=== PATIENT | female | born 1985 | race Caucasian/White ===

== ENCOUNTER 2023-05-09 19:27 | Emergency (ER) | payer OTHER ==
[2023-05-09] MEDS ORDERED: CETIRIZINE HCL 5 MG TABLET ONE (20:02)
[2023-05-09] MEDS ORDERED: ACETAMINOPHEN 500 MG TAB ONE (20:03)
--- NOTE | 2023-05-09 20:04 | ER ---
Nurse's Notes [facility] Name: Yamilka Gottlieb Age: 37 yrs Sex: Female : 1985 Arrival Date: 05/09/2023 Time: 19:27 Bed Treatment Private MD: Diagnosis: Anxiety disorder, unspecified;Nasal congestion;Headache Presentation: 05/09 19:29 Chief complaint: EMS states: called out for "panic attack" pt reports headache also. pt as6 calm at time of triage. denies thoughts of harming self or others. Coronavirus screen: At this time, the client does not indicate any symptoms associated with coronavirus-19. Ebola Screen: No symptoms or risks identified at this time. Initial Sepsis Screen: Does the patient meet any 2 criteria? No. Patient's initial sepsis screen is negative. Does the patient have a suspected source of infection? No. Patient's initial sepsis screen is negative. Risk Assessment: Do you want to hurt yourself or someone else? Patient reports no desire to harm self or others. Onset of symptoms was May 09, 2023. 19:29 Acuity: REHANA 4 as6 19:29 Method Of Arrival: EMS: [facility] as6 Historical: - Allergies: 19:31 PENICILLINS; as6 - PMHx: 19:31 Anxiety; Depressive disorder; as6 - PSHx: 19:31 None; as6 - Immunization history:: Adult Immunizations up to date. - Social history:: Smoking status: Patient reports the use of cigarette tobacco products, smokes one pack cigarettes per day. Screenin:35 [facility] ED Fall Risk Assessment (Adult) Score/Fall Risk Level 0 - 2 = Low Risk. Abuse eh3 screen: Denies threats or abuse. Denies injuries from another. Nutritional screening: No deficits noted. Tuberculosis screening: No symptoms or risk factors identified. Assessment: 19:35 General: Appears in no apparent distress. uncomfortable, Behavior is cooperative. Pain: eh3 Complains of pain in head. Neuro: Level of Consciousness is awake, alert, obeys commands, Oriented to person, place, time, situation. Cardiovascular: Capillary refill < 3 seconds Patient's skin is warm and dry. Respiratory: Airway is patent Respiratory effort is even, unlabored, Respiratory pattern is regular, symmetrical. GI: Abdomen is round non-distended. Derm: Skin is pink, warm \\T\\ dry. Musculoskeletal: Circulation, motion, and sensation intact. Range of motion: intact in all extremities. Vital Signs: 19:29 BP 113 / 76; Pulse 106; Resp 18 S; Temp 97.7(TE); Pulse Ox 95% on R/A; Weight 90.72 kg as6 (R); Height 5 ft. 6 in. (R); Pain 10/10; 19:29 Body Mass Index 32.28 (90.72 kg, 167.64 cm) as6 19:29 Pain Scale: Adult as6 ED Course: 19:29 Patient arrived in ED. as6 19:31 Triage completed. as6 19:31 Arm band placed on. as6 19:34 [facility]C [facility]. kb 19:34 Eric Maya MD is Attending Physician. kb 19:35 Patient has correct armband on for positive identification. Provided Education on: Use eh3 of call damon. 19:43 Gely Benavidez, RN is Primary Nurse. eh3 20:17 No provider procedures requiring assistance completed. Patient did not have IV access eh3 during this emergency room visit. Administered Medications: 19:50 Drug: ZyrTEC - Cetirizine PO 10 mg PO once Route: PO; eh3 20:15 Follow up: Response: No adverse reaction eh3 19:50 Drug: Acetaminophen PO 1000 mg PO once Route: PO; eh3 20:15 Follow up: Response: No adverse reaction eh3 Medication: 20:17 VIS not applicable for this client. eh3 Outcome: 20:04 Discharge ordered by . kb 20:17 Discharged to home ambulatory, eh3 20:17 Condition: stable 20:17 Discharge instructions given to patient, Instructed on discharge instructions, follow up and referral plans. Demonstrated understanding of instructions, follow-up care, 20:26 Patient left the ED. eh3 Signatures: Jolie Perry FNP-C FNP-Mansoor Saez RN RN as6 Gely Benavidez RN RN eh3
--- NOTE | 2023-05-09 20:05 | EDPHYS ---
Physician Documentation [facility] Name: Yamilka Gottlieb Age: 37 yrs Sex: Female : 1985 Arrival Date: 05/09/2023 Time: 19:27 Bed Treatment Private MD: ED Physician Eric Maya HPI: 05/09 21:33 This 37 yrs old Female presents to ER via EMS with complaints of headache, congestion. kb 21:33 Patient is a 37-year-old female who presents for headache, congestion and anxiety kb attack. States she had a anxiety attack prior to arrival but that has since resolved. Requests medication for headache and congestion, as well as, something to eat and request to stay the night. States she has somebody that can come get her in the morning but not this evening. 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 Historical: - Allergies: 19:31 PENICILLINS; as6 - PMHx: 19:31 Anxiety; Depressive disorder; as6 - PSHx: 19:31 None; as6 - Immunization history:: Adult Immunizations up to date. - Social history:: Smoking status: Patient reports the use of cigarette tobacco products, smokes one pack cigarettes per day. ROS: 21:35 Constitutional: Negative for fever, chills, and weight loss, kb 21:35 ENT: Positive for sinus congestion, 21:35 Neuro: Positive for headache, 21:35 All other systems are negative, Exam: 21:35 Constitutional: This is a well developed, well nourished patient who is awake, alert, kb and in no acute distress. Head/Face: Normocephalic, atraumatic. ENT: Moist Mucous membranes Cardiovascular: Regular rate Respiratory: Respirations even and unlabored. No increased work of breathing. Talking in full sentences Abdomen/GI: Soft, non-tender. No distention Skin: Warm, dry with normal turgor. Normal color. MS/ Extremity: Pulses equal, no cyanosis. Neurovascular intact. Full, normal range of motion. Neuro: Awake and alert, GCS 15, oriented to person, place, time, and situation. Moves all extremities. Normal gait. 21:35 Psych: Behavior/mood is pleasant, cooperative, Affect is animated, Oriented to person, place, time, Patient has no thoughts/intents to harm self or others. Vital Signs: 19:29 BP 113 / 76; Pulse 106; Resp 18 S; Temp 97.7(TE); Pulse Ox 95% on R/A; Weight 90.72 kg as6 (R); Height 5 ft. 6 in. (R); Pain 10/10; 19:29 Body Mass Index 32.28 (90.72 kg, 167.64 cm) as6 19:29 Pain Scale: Adult as6 MDM: 19:34 Patient medically screened. kb 21:36 Differential Diagnosis: Other Allergic rhinitis, URI, flu, COVID, strep. Data reviewed: kb vital signs, nurses notes. Test considered but Not performed: Labs: Flu, COVID and strep test considered but patient states she does not want to have that done. Historians other than the Patient: EMS: [facility]. Counseling: I had a detailed discussion with the patient and/or guardian regarding the historical points, exam findings, and any diagnostic results supporting the discharge/admit diagnosis, the need for outpatient follow up, a family practitioner, to return to the emergency department if symptoms worsen or persist or if there are any questions or concerns that arise at home. Administered Medications: 19:50 Drug: ZyrTEC - Cetirizine PO 10 mg PO once Route: PO; eh3 20:15 Follow up: Response: No adverse reaction eh3 19:50 Drug: Acetaminophen PO 1000 mg PO once Route: PO; eh3 20:15 Follow up: Response: No adverse reaction eh3 Disposition Summary: 05/09/23 20:04 Discharge Ordered Notes: Location: Home kb Condition: Stable kb Diagnosis - Anxiety disorder, unspecified kb - Nasal congestion kb - Headache kb Followup: kb - With: Emergency Department - When: As needed - Reason: Worsening of condition Followup: kb - With: Private Physician - When: 2 - 3 days - Reason: Recheck today's complaints, Continuance of care, Re-evaluation by your physician Discharge Instructions: - Discharge Summary Sheet kb - Panic Attack, [id number] kb - Allergic Rhinitis, Adult, [id number] kb Forms: - Medication Reconciliation Form kb - Thank You Letter kb - Antibiotic Education kb - Prescription Opioid Use kb - Patient Portal Instructions kb - Leadership Thank You Letter kb Signatures: Jolie Perry FNP-C FNP-Mansoor Saez RN RN as6 Gely Benavidez, RN RN eh3
== END 2023-05-09 20:26 | disposition home or self-care (01) ==
LOC: ER 19:27
DX: F41.9 Anxiety disorder, unspecified (principal); R09.81 Nasal congestion; R51.9 Headache, unspecified; F17.210 Nicotine dependence, cigarettes, uncomplicated; Z88.0 Allergy status to penicillin

== ENCOUNTER 2023-05-10 02:03 | Emergency (ER) | payer OTHER ==
--- NOTE | 2023-05-10 02:18 | ER ---
Nurse's Notes [facility] Name: Yamilka Gottlieb Age: 37 yrs Sex: Female : 1985 Arrival Date: 05/10/2023 Time: 02:03 Bed 6 Private MD: Diagnosis: Anxiety disorder, unspecified Presentation: 05/10 02:18 Chief complaint: Patient states: anxiety that started tonight. Coronavirus screen: At as6 this time, the client does not indicate any symptoms associated with coronavirus-19. Ebola Screen: No symptoms or risks identified at this time. Initial Sepsis Screen: Does the patient meet any 2 criteria? No. Patient's initial sepsis screen is negative. Does the patient have a suspected source of infection? No. Patient's initial sepsis screen is negative. Risk Assessment: Do you want to hurt yourself or someone else? Patient reports no desire to harm self or others. Onset of symptoms was May 10, 2023. 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 - Social history:: Smoking status: Patient reports the use of cigarette tobacco products, smokes one pack cigarettes per day. Screenin:28 [facility] ED Fall Risk Assessment (Adult) History of falling in the last 3 months, nw1 including since admission No falls in past 3 months (0 pts) Confusion or Disorientation No (0 pts) Intoxicated or Sedated No (0 pts) Impaired Gait No (0 pts) Mobility Assist Device Used No (0 pt) Altered Elimination No (0 pt) Score/Fall Risk Level 0 - 2 = Low Risk Oriented to surroundings, Maintained a safe environment, Educated pt \T\ family on fall prevention, incl call for assistance when getting out of bed, Assessed \T\ reinforced patient's understanding of fall precautions, Provided non-skid footwear, Hourly rounding (assess needs \T\ fall precautionary measures) done, Used ambulatory aids as needed (educated on \T\ assisted with), Used gait belt as appropriate. Abuse screen: Denies threats or abuse. Denies injuries from another. Nutritional screening: No deficits noted. Tuberculosis screening: No symptoms or risk factors identified. Assessment: 02:28 General: Appears in no apparent distress. unkempt, Behavior is calm, flat. Pain: Denies nw1 pain. Neuro:. Respiratory: No deficits noted. GI: No deficits noted. : No deficits noted. Musculoskeletal: No deficits noted. Vital Signs: 02:16 BP 127 / 71; Pulse 75; Resp 18 S; Temp 98.1(TE); Pulse Ox 98% on R/A; Weight 90.72 kg as6 (R); Height 5 ft. 6 in. (R); 02:16 Body Mass Index 32.28 (90.72 kg, 167.64 cm) as6 ED Course: 02:04 Patient arrived in ED. jj6 02:05 [facility]-C [facility]. kb 02:05 Rafi Taveras MD is Attending Physician. kb 02:16 Arm band placed on. as6 02:25 Triage completed. as6 02:28 Patient has correct armband on for positive identification. Bed in low position. Call nw1 light in reach. Side rails up X2. Provided Education on: POC. 02:28 No provider procedures requiring assistance completed. Patient did not have IV access nw1 during this emergency room visit. 02:45 Monae Karimi, RN is Primary Nurse. nw1 Administered Medications: 02:25 Drug: Depakote PO 500 mg PO once Route: PO; nw1 02:45 Drug: Benztropine PO 1 mg PO once Route: PO; nw1 Medication: 02:28 VIS not applicable for this client. nw1 Outcome: 02:18 Discharge ordered by . karen 02:49 Discharged to home ambulatory, nw1 02:49 Condition: good 02:49 Discharge instructions given to patient, Instructed on discharge instructions, follow up and referral plans. Demonstrated understanding of instructions, 02:51 Patient left the ED. nw1 Signatures: Jolie Perry FNP-C FNP-Ckb Jeffries, Jennifer jj6 Mansoor Eden RN RN as6 Monae Karimi, SHERIF RN nw1
--- NOTE | 2023-05-10 02:18 | EDPHYS ---
Physician Documentation [facility] Name: Yamilka Gottlieb Age: 37 yrs Sex: Female : 1985 Arrival Date: 05/10/2023 Time: 02:03 Bed 6 Private MD: ED Physician Rafi Taveras HPI: 05/10 02:16 This 37 yrs old Female presents to ER via Unassigned with complaints of Anxiety. kb 02:16 Pt was seen in ER by me earlier [place]. Was discharged, but does not have a ride until kb 0800. States she was sitting outside and it was too dark so she got scared. Signed in to get a dose of her regular medicine (cogentin and depakote) that she normally takes at night. [place] [facility] and will give medications requested. 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 - Social history:: Smoking status: Patient reports the use of cigarette tobacco products, smokes one pack cigarettes per day. ROS: 02:15 Constitutional: Negative for fever, chills, and weight loss, kb 02:15 Psych: Positive for anxiety, 02:15 All other systems are negative, Exam: 02:15 Constitutional: This is a well developed, well nourished patient who is awake, alert, kb and in no acute distress. Head/Face: Normocephalic, atraumatic. ENT: Moist Mucous membranes Cardiovascular: Regular rate Respiratory: Respirations even and unlabored. No increased work of breathing. Talking in full sentences Skin: Warm, dry with normal turgor. Normal color. MS/ Extremity: Pulses equal, no cyanosis. Neurovascular intact. Full, normal range of motion. Neuro: Awake and alert, GCS 15, oriented to person, place, time, and situation. Moves all extremities. Normal gait. 02:15 Psych: Behavior/mood is pleasant, cooperative, Affect is calm, Oriented to person, place, time, Patient has no thoughts/intents to harm self or others. Vital Signs: 02:16 BP 127 / 71; Pulse 75; Resp 18 S; Temp 98.1(TE); Pulse Ox 98% on R/A; Weight 90.72 kg as6 (R); Height 5 ft. 6 in. (R); 02:16 Body Mass Index 32.28 (90.72 kg, 167.64 cm) as6 MDM: 02:05 Patient medically screened. kb 02:15 Differential Diagnosis anxiety, bipolar disorder. Data reviewed: vital signs, nurses kb notes. Counseling: I had a detailed discussion with the patient and/or guardian regarding the historical points, exam findings, and any diagnostic results supporting the discharge/admit diagnosis, the need for outpatient follow up, a family practitioner, to return to the emergency department if symptoms worsen or persist or if there are any questions or concerns that arise at home. Administered Medications: 02:25 Drug: Depakote PO 500 mg PO once Route: PO; nw 02:45 Drug: Benztropine PO 1 mg PO once Route: PO; nw1 Disposition: 02:29 Co-signature as Attending Physician, Jolie DAI I agree with the assessment sp4 and plan of care. I reviewed the patient's care provided by the Advanced Practice Provider and agree with the diagnosis and treatment plan. Disposition Summary: 05/10/23 02:18 Discharge Ordered Notes: Location: Home kb Condition: Stable kb Diagnosis - Anxiety disorder, unspecified kb Followup: kb - With: Emergency Department - When: As needed - Reason: Worsening of condition Followup: kb - With: Private Physician - When: 2 - 3 days - Reason: Recheck today's complaints, Continuance of care, Re-evaluation by your physician Discharge Instructions: - Discharge Summary Sheet kb - Generalized Anxiety Disorder, Adult kb - Managing Anxiety, Adult kb Forms: - Medication Reconciliation Form kb - Thank You Letter kb - Antibiotic Education kb - Prescription Opioid Use kb - Patient Portal Instructions kb - Leadership Thank You Letter kb Signatures: Jolie Perry FNP-C FNP-Mansoor Saez RN RN as6 Rafi Taveras MD MD sp4 Monae Karimi RN RN nw1
[2023-05-10] MEDS ORDERED: DIVALPROEX DR 250 MG TAB PO ONE (02:35)
[2023-05-10] MEDS ORDERED: BENZTROPINE 1 MG TAB ONE (02:43)
[2023-05-11 15:32] VITALS: BP 127/71; TEMP 98.1; O2SAT 98
== END 2023-05-10 02:51 | disposition home or self-care (01) ==
LOC: ER 02:03
DX: F41.9 Anxiety disorder, unspecified (principal); F17.210 Nicotine dependence, cigarettes, uncomplicated; Z88.0 Allergy status to penicillin